=== PATIENT | male | born 1970 | race Caucasian/White ===

== ENCOUNTER → 2016-05-02 | Outpatient (CLI) | payer BC ==
--- NOTE | 2016-05-03 09:07 | XR ---
Abdomen HISTORY: Urinary frequency, low back pain Frontal view of the abdomen submitted on 2 images. Comparison the lumbosacral spine same date Lung bases are clear. No pneumoperitoneum or bowel obstruction. No pathologic calcification evident. Bone mineralization is maintained. IMPRESSION: Nonobstructive bowel gas pattern
--- NOTE | 2016-05-03 09:08 | XR ---
Lumbosacral spine HISTORY: Recurrent low back pain 5 views of the lumbosacral spine There is no spondylolysis or spondylolisthesis. Lumbar vertebral bodies show preserved height and bon e mineralization. Loss of disc height present at L5-S1. Sclerosis in the posterior elements may be in dicative of mild facet arthropathy IMPRESSION: Mild degenerative disc disease.
== END | disposition home or self-care (01) ==
LOC: RADXRYALE 11:05
PROVIDERS: ATTEND Internal Medicine
DX: M51.37 Other intervertebral disc degeneration, lumbosacral region (principal); R32 Unspecified urinary incontinence
CPT/HCPCS: 72110; 74000

== ENCOUNTER → 2016-12-23 | Outpatient (CLI) | payer BC ==
--- NOTE | 2016-12-23 17:49 | CT ---
EXAMINATION TYPE: CT abdomen pelvis w con DATE OF EXAM: 12/23/2016 COMPARISON: NONE HISTORY: Patient complains of left side pain and bloating post eating. Bloating visibly swells left side and displaces umbilicus to the right. Patient also complains of dysuria. CT DLP: 1186.7 mGycm Automated exposure control for dose reduction was used. TECHNIQUE: Helical acquisition of images was performed from the lung bases through the pelvis. CONTRAST: Performed without Oral Contrast and with IV Contrast, patient injected with 100 mL of Omnipaque 300. FINDINGS: Lung bases are clear. There is no pleural effusion. Heart size is normal. The liver spleen pancreas gallbladder appear normal. Bile ducts are not dilated. There is no adrenal mass. Kidneys show satisfactory contrast opacification. There is no hydronephrosis. There is a 8 mm c ortical cyst on the lateral left kidney. There is no retroperitoneal adenopathy. Gallbladder is contr acted. There is no ascites. I see no intestinal wall thickening. There are no dilated loops. Appendix is not seen. There is no sign of appendicitis. I see no intestinal wall thickening. Bony structures are int act. IMPRESSION: NEGATIVE CT SCAN OF THE ABDOMEN AND PELVIS.
== END | disposition home or self-care (01) ==
LOC: RADCTMAIN 16:53
PROVIDERS: ATTEND Internal Medicine
DX: R10.32 Left lower quadrant pain (principal); R39.11 Hesitancy of micturition
CPT/HCPCS: 74177; Q9967

== ENCOUNTER → 2020-10-15 | Outpatient (CLI) | payer BC ==
--- NOTE | 2020-10-15 11:18 | XR ---
EXAM TYPE: LUMBAR SPINE X RAY SERIES COMPARISON: NONE HISTORY: Lower back pain TECHNIQUE: 4 views are submitted. FINDINGS: Alignment is anatomic. The pedicles are intact. The transverse processes are intact. There is no s pondylolysis or spondylolisthesis. Mild degenerative disc disease L5-S1. There is diffuse osteopenia . IMPRESSION: 1. Diffuse osteopenia with mild degenerative disc disease L5-S1.
== END | disposition home or self-care (01) ==
LOC: RADXRYALE 10:55
PROVIDERS: ATTEND Family Medicine
DX: M51.37 Other intervertebral disc degeneration, lumbosacral region (principal); M85.88 Other specified disorders of bone density and structure, other site
CPT/HCPCS: 72110

== ENCOUNTER → 2020-11-26 | Outpatient (CLI) | payer BC ==
--- NOTE | 2020-11-26 10:57 | MR ---
EXAMINATION TYPE: MR lumbar spine wo con DATE OF EXAM: 11/26/2020 COMPARISON: Lumbar spine x-ray October 15, 2020. CT abdomen and pelvis December 23, 2016 HISTORY: LBP, muscle weakness in both legs x 2 years. Hx of fall from a tree 20 years ago. TECHNIQUE: Multiplanar, multisequence imaging of the lumbar spine is performed without IV contrast. FINDINGS: Sagittal images of the lumbar spine show vertebral body heights and alignment to appear sat isfactory. Disc desiccation L5-S1 level. Early disc desiccation L4-L5 level. Disc space heights maint ained. The conus medullaris is slightly low in position ending at mid L2 level without abnormal signa l or suspicious clumping of lumbosacral nerve roots. The bone marrow signal intensity is within norm al limits. Axial images show mild facet arthropathy L3-L4 through the L5-S1 levels. Spinal canal is preserved. T here is increased signal consistent with annular tear in the left lateral posterior aspect of the L4- L5 disc space. Mild left-sided neural foraminal narrowing at this level due to foraminal disc herniat ion. Paraspinal muscle bulk is maintained. IMPRESSION: Mild degenerative changes in the lower lumbar spine as detailed above
== END | disposition home or self-care (01) ==
LOC: RADMRIMAIN 07:41
PROVIDERS: ATTEND Family Medicine
DX: M51.36 Other intervertebral disc degeneration, lumbar region (principal); M62.81 Muscle weakness (generalized)
CPT/HCPCS: 72148

== ENCOUNTER → 2023-05-15 | Outpatient (CLI) | payer BC ==
--- NOTE | 2023-05-15 14:18 | XR ---
EXAMINATION TYPE: XR cervical spine comp DATE OF EXAM: 05/15/2023 11:47 AM CLINICAL INDICATION:Male, 52 years old with history of M542,R202 CERVICALGIA,PARESTHESIA OF SKIN; [facility] COMPARISON: None TECHNIQUE: The cervical spine was imaged in frontal, lateral, odontoid and bilateral oblique. FINDINGS: The osseous structures show normal alignment without evidence of an acute fracture. No significant ve rtebral body osteophytes or facet joint arthropathy. The intervertebral disk spaces are preserved. Pe dicles are intact. Soft tissues are within normal limits. The odontoid appears intact. The neural fo ramen appear patent. IMPRESSION: 1. No fracture or dislocation. 2. Minimal degenerative disc disease changes of the cervical spine.
== END | disposition home or self-care (01) ==
LOC: RADXRYALE 11:32
PROVIDERS: ATTEND Family Medicine
DX: M50.30 Other cervical disc degeneration, unspecified cervical region (principal); R20.2 Paresthesia of skin
CPT/HCPCS: 72050

== ENCOUNTER → 2023-05-27 | Outpatient (CLI) | payer BC ==
--- NOTE | 2023-05-30 10:16 | MR ---
EXAMINATION TYPE: MR brain wo/w sheridan cespedes DATE OF EXAM: 05/27/2023 3:08 PM CLINICAL INDICATION:Male, 52 years old with history of R27.0 ATAXIA, UNSPECIFIED; PHH, Fell 30 ft out of tree, Headaches, Dizziness, Weakness/Numbness upper body COMPARISON: 03/25/2010. TECHNIQUE: Multi planar, multi sequence imaging was performed through the brain including: T1, T2, Inversion rec overy, Diffusion weighted imaging, and gradient echo imaging. No gadolinium was given. Multi planar, multi sequence imaging was performed utilizing: T1-weighted, T2-weighted, and turbo inv ersion recovery imaging of the cervical spine. IV Contrast: 10 cc Gadobutrol FINDINGS: The tinajero-white junctions, ventricular system, basal cisterns appear unremarkable. Scattered areas o f white matter changes some of which are orthogonal to the lateral ventricles.. Midline structures sh ow no abnormality. Diffusion-weighted imaging shows no evidence of restricted diffusion. Scattered ar eas of T2 shine through present. The susceptibility weighted images do not reveal any evidence for mi diversified crops i farmworker-hemorrhage. Abnormal bilateral parietal lobes series 1302 image 16 measuring 14 mm on the left an d 8 mm on the right. Additional punctate focus of enhancement in the right frontal lobe series 1302 i mage 22 and left superior parietal lobe image 22. Punctate focus of enhancement also within the left krystina. These areas do not have associated SWI blooming artifact. The bone marrow signal is within normal limits. Paranasal sinuses and mastoid air cells: Moderate paranasal sinus mucosal thickening within the right maxillary sinus with underlying retention cyst measuring up to 20 mm. Visualized orbits: Orbital contents are intact. Alignment: The cervical vertebral bodies have preserved heights. Alignment is within normal limits gi shalom patient positioning. Bones: Minimal disc space narrowing and osteophyte formation with facet and uncovertebral joint arthr opathy. Cord: The spinal cord is unremarkable with regards to their signal intensity and morphology. Discs: Intervertebral disc signal is maintained. C2-C3: No significant disc pathology. The spinal canal is patent. No neural foraminal stenosis. C3-C4: No significant disc pathology. The spinal canal is patent. No neural foraminal stenosis. C4-C5: No significant disc pathology. The spinal canal is patent. No neural foraminal stenosis. C5-C6: No significant disc pathology. The spinal canal is patent. No neural foraminal stenosis. C6-C7: No significant disc pathology. The spinal canal is patent. No neural foraminal stenosis. C7-T1: No significant disc pathology. The spinal canal is patent. No neural foraminal stenosis. Other: None. IMPRESSION: 1. Areas of abnormal enhancement with scattered white matter changes some of which are orthogonal to the ventricles correlate for demyelination. Alternatively given patient's history of fall this could represent axonal injury which is felt to be less likely given no susceptibility on SWI sequences. 2. No evidence of intracranial mass or acute/subacute infarct. 3. No evidence for disc herniation or significant spinal canal stenosis.
== END | disposition home or self-care (01) ==
LOC: RADMRIMAIN 14:00
PROVIDERS: ATTEND Family Medicine
DX: R27.0 Ataxia, unspecified (principal); R20.2 Paresthesia of skin; M62.50 Muscle wasting and atrophy, not elsewhere classified, unspecified site; R29.2 Abnormal reflex; R63.4 Abnormal weight loss; M54.2 Cervicalgia; M47.13 Other spondylosis with myelopathy, cervicothoracic region
CPT/HCPCS: 70553; 72141; A9585

== ENCOUNTER → 2023-07-17 | Outpatient (CLI) | payer BC ==
--- NOTE | 2023-07-17 18:13 | XR ---
EXAMINATION TYPE: XR chest 2V DATE OF EXAM: 07/17/2023 5:16 PM CLINICAL INDICATION:Male, 52 years old with history of R059,R051,G35 FEVER,COUGH,MS; [facility] COMPARISON: None TECHNIQUE: XR chest 2V Frontal and lateral views of the chest. FINDINGS: Lungs/Pleura: There is no evidence of pleural effusion, focal consolidation, or pneumothorax. Pulmonary vascularity: Unremarkable. Heart/mediastinum: Cardiomediastinal silhouette is unremarkable. Musculoskeletal: No acute osseous pathology. IMPRESSION: No acute cardiopulmonary disease/process.
== END | disposition home or self-care (01) ==
LOC: RADXRYALE 16:38
PROVIDERS: ATTEND Physician Assistant
DX: R05.1 Acute cough (principal); G35 Multiple sclerosis; R50.9 Fever, unspecified
CPT/HCPCS: 71046